=== PATIENT | male | born 1960 | race Caucasian/White ===

== ENCOUNTER 2019-04-12 07:10 | Day surgery (SDC) | payer BC ==
[2019-04-12] MEDS ORDERED: LIDOCAINE 2% MDV (20MG/ML) 20ML VIAL IV ONE (07:11)
[2019-04-12] MEDS ORDERED: PROPOFOL 10 MG/ML VIAL IV ONE (07:11)
--- NOTE | 2019-04-13 11:11 | Operative Note ---
OPERATION: COLONOSCOPY with cold snare and hot snare polypectomies as well as biopsy and hemoclip application. PREOPERATIVE DIAGNOSIS: Colon cancer screening. POSTOPERATIVE DIAGNOSES: 1. Multiple colon polyps. 2. Prominent ileocecal valve, questionably lipomatous change. PROCEDURE: After informed consent was obtained from the patient, he was placed in the left lateral decubitus position in the endoscopy suite, sedated and monitored by the department of anesthesia. Digital rectal exam was unremarkable. A well-lubricated [id number] colonoscope was inserted into the rectum and advanced throughout a quite redundant colon to the level of the cecum. Preparation quality was good. The cecum and cecal bulb revealed a diminutive polyp removed with a cold forceps. The ileocecal valve was somewhat prominent, perhaps lipomatous; however, biopsies were obtained to rule out adenomatous degeneration. In the ascending colon, there was another diminutive polyp removed with a cold forceps. The transverse colon revealed a 5 mm polyp removed with a cold snare. The descending colon revealed another 5-6 mm polyp removed with a cold snare. In the sigmoid colon, there were 2 polyps, one 4 mm removed with a cold snare and another 6-7 mm removed with a cold snare. There was a persistent ooze at the site and as a result, a hemoclip was applied with excellent hemostasis. In the rectum was a 9 mm semi-pedunculated, semi-sessile polyp removed with a polypectomy snare and ERBE Endocut current. There was no bleeding at the conclusion of the polypectomy. J-turn views of the anorectum were otherwise unremarkable. All polyps were retrieved. The endoscope was straightened, the rectal ampulla deflated, and the endoscope was removed. RECOMMENDATIONS: The patient should avoid aspirin and nonsteroidal products if possible for the next 2 weeks. I would recommend a low-fiber diet for the next 2 weeks. He will require repeat exam in 1-3 years pending tissue histology. As always, thank you for allowing me to participate in the healthcare of your patients. LA NEAN
== END 2019-04-12 08:58 | disposition home or self-care (01) ==
LOC: HOP 07:10
PROVIDERS: ATTEND Internal Medicine Gastroenterology
DX: Z12.11 Encounter for screening for malignant neoplasm of colon (principal); D12.2 Benign neoplasm of ascending colon; D12.0 Benign neoplasm of cecum; D12.4 Benign neoplasm of descending colon; D12.3 Benign neoplasm of transverse colon; D37.4 Neoplasm of uncertain behavior of colon; D37.5 Neoplasm of uncertain behavior of rectum; E11.9 Type 2 diabetes mellitus without complications; I10 Essential (primary) hypertension; E78.00 Pure hypercholesterolemia, unspecified